=== PATIENT | male | born 1980 | race Caucasian/White ===

== ENCOUNTER 2018-12-13 22:33 | Emergency (ER) | payer OTHER ==
[2018-12-13 22:43] VITALS: TEMP 98.5
[2018-12-13] MEDS ORDERED: SODIUM CHLORIDE 0.9% 1,000 ML IV STA (23:13)
--- NOTE | 2018-12-13 23:20 | ED ---
General Adult HPI - General Chief complaint: Syncope Stated complaint: SYNCOPE Time Seen by Provider: 12/13/18 22:44 Source: patient, family, EMS, RN notes reviewed Mode of arrival: EMS Limitations: no limitations - History of Present Illness Initial comments: Chief complaint and history of present illness this is a 38-year-old male who was at a bowling alley and had 2 or 3 beers. He was talking to someone who is describing a surgical procedure. The witnesses said he stiffened up and fell forward someone helped break his fall he did cut his lower lip. There is no seizure activity afterwards he wakened soon thereafter was confused. reports he looked somewhat pale. He is answering questions at this time. - Related Data Home Medications Medication Instructions Recorded Confirmed Acetaminophen Tab [Tylenol Tab] 650 mg PO Q6H PRN 12/13/18 12/13/18 Calcium Carbonate [Tums] 500 mg PO BID PRN 12/13/18 12/13/18 Allergies Allergy/AdvReac Type Severity Reaction Status Date / Time No Known Allergies Allergy Verified 12/13/18 23:01 Review of Systems ROS Statement: Those systems with pertinent positive or pertinent negative responses have been documented in the HPI. Review of systems. Patient denies any headache or visual acuity changes right now denies any pain or chipped teeth. He does have a small laceration to the middle of his lower lip. Denies headache or neck pain. No chest pain shortness breath GI or problems. All systems were reviewed. The patient denies any significant past medical problems his pointed out that he had one syncopal episode after eating too much sugar 10 years ago. The patient denies taking any current medications. He does state that he had 2 maybe 3 beers. He does smoke a little marijuana. Family history noncontributory. ROS Other: All systems not noted in ROS Statement are negative. Past Medical History Past Medical History: No Reported History History of Any Multi-Drug Resistant Organisms: None Reported Past Surgical History: Hernia Repair Past Psychological History: No Psychological Hx Reported Smoking Status: Current every day smoker Past Alcohol Use History: Occasional Past Drug Use History: Marijuana General Exam - General Exam Comments Initial Comments: General: The patient is awake and alert,patient just recently had a syncopal episode [place] [facility] [place]. Presents with a laceration to his lower lip.vital signs show temperature 98.0 pulse 116 respiratory rate 16 blood pressure 121/80 and pulse ox on percent room air. Eye: Pupils are equal, round and reactive to light, extra-ocular movements are intact ; there is normal conjunctiva bilaterally. No signs of icterus. Ears, nose, mouth and throat: There are moist mucous membranes and no oral lesions.small V-shaped laceration middle of lower lip. Teeth intact. Patient denies any chipped teeth. Neck: The neck is supple, there is no tenderness . Cardiovascular: There is a regular rate and rhythm. No murmur, rub or gallop is appreciated. Respiratory: Lungs are clear to auscultation, respirations are non-labored, breath sounds are equal. No wheezes, stridor, rales, or rhonchi. Gastrointestinal: Soft, non-distended, non-tender abdomen without masses or organomegaly noted. There is no rebound or guarding present. No CVA tenderness. Bowel sounds are unremarkable. Back: There is no tenderness to palpation in the midline. There is no obvious deformity. No rashes noted. Musculoskeletal: Normal ROM, no tenderness, There is no pedal edema. There is no calf tenderness or swelling. Sensation intact. . Neurological: CN II-XII intact, There are no obvious motor or sensory deficits. Coordination appears grossly intact. Speech is normal.no focal or lateralizing findings Skin: Skin is warm and dry and no rashes or lesions are noted. Psychiatric: Cooperative, . Limitations: no limitations Course Vital Signs 12/13/18 12/13/18 22:37 23:29 Temperature 98.5 F Pulse Rate 110 H 102 H Respiratory 16 19 Rate Blood Pressure 121/80 119/78 O2 Sat by Pulse 100 99 Oximetry EKG Findings - EKG Comments: EKG Findings:: EKG was done and reviewed at 2247 showing sinus tachycardia rate 105. Nonspecific ST-T wave changes no ectopy no ischemic changes. VA interval was 184 QRS is 90 QT is 326 QTc is 4:30. No old EKG to compare to. Dr. Kevin Medical Decision Making - Medical Decision Making Vital decision making; this is a 38-year-old male had a syncopal episode after having had several drinks and listening to a friend talk about it glory surgery. The patient thinks he may have had a syncopal episode secondary to that. He does have a laceration to his lip. This repaired by the physician's assistant director of residence life. The patient's white count is 12.8 hemoglobin 15 hematocrit 45. Potassium 4.1 with a BUN 20 creatinine 0.9 and GFR greater than 90. Glucose 142.Troponin less than 0.012. CT of the brain and cervical spine were done and reported to be negative for CT of his brain and spine per Dr. Dexter. The patient resting comfortably. He is rehydrated. With be sent home with his . He'll be advised to follow-up with his family physician. The patient was told that he should not or cannot drive until his family physician clears him for having had a syncopal episode. As another episode while driving will be dangerous to him in the public a large. - Lab Data Result diagrams: 12/13/18 22:45 12/13/18 22:45 Lab Results 12/13/18 12/13/18 12/13/18 Range/Units 22:45 22:45 22:45 WBC 12.8 H (3.8-10.6) k/uL RBC 5.15 (4.30-5.90) m/uL Hgb 15.5 (13.0-17.5) gm/dL Hct 45.3 (39.0-53.0) % MCV 87.9 (80.0-100.0) fL MCH 30.1 (25.0-35.0) pg MCHC 34.3 (31.0-37.0) g/dL RDW 12.2 (11.5-15.5) % Plt Count 340 (150-450) k/uL Neutrophils % 67 % Lymphocytes % 24 % Monocytes % 4 % Eosinophils % 3 % Basophils % 1 % Neutrophils # 8.6 H (1.3-7.7) k/uL Lymphocytes # 3.1 (1.0-4.8) k/uL Monocytes # 0.5 (0-1.0) k/uL Eosinophils # 0.3 (0-0.7) k/uL Basophils # 0.1 (0-0.2) k/uL Sodium 136 L (137-145) mmol/L Potassium 4.1 (3.5-5.1) mmol/L Chloride 103 (98-107) mmol/L Carbon Dioxide 25 (22-30) mmol/L Anion Gap 8 mmol/L BUN 20 (9-20) mg/dL Creatinine 0.99 (0.66-1.25) mg/dL Est GFR (CKD-EPI)AfAm >90 (>60 ml/min/1.73 sqM) Est GFR (CKD-EPI)NonAf >90 (>60 ml/min/1.73 sqM) Glucose 142 H (74-99) mg/dL Calcium 9.5 (8.4-10.2) mg/dL Total Bilirubin 0.4 (0.2-1.3) mg/dL AST 21 (17-59) U/L ALT 32 (21-72) U/L Alkaline Phosphatase 49 (38-126) U/L Total Creatine Kinase 95 (55-170) U/L CK-MB (CK-2) 0.8 (0.0-2.4) ng/mL CK-MB (CK-2) Rel Index 0.8 Troponin I <0.012 (0.000-0.034) ng/mL Total Protein 6.9 (6.3-8.2) g/dL Albumin 4.2 (3.5-5.0) g/dL Disposition Clinical Impression: Vasovagal syncope, Laceration of lip Disposition: HOME SELF-CARE Condition: Fair Instructions: Syncope (ED) Additional Instructions: Apply ice to lip. Reports signs of infection her family doctor. No driving a car or operating heavy machinery until cleared by her family doctor. Is patient prescribed a controlled substance at d/c from ED?: No Referrals: None,Stated [Primary Care Provider] - 1-2 days Time of Disposition: 00:31
[2018-12-13 23:28] LABS: Basophils # (A) 0.1 k/uL (0-0.2); Basophils % (A) 1 %; Eosinophils # (A) 0.3 k/uL (0-0.7); Eosinophils % (A) 3 %; HCT 45.3 % (39.0-53.0); HGB 15.5 gm/dL (13.0-17.5); Lymphocytes # (A) 3.1 k/uL (1.0-4.8); Lymphocytes % (A) 24 %; MCH 30.1 pg (25.0-35.0); MCHC 34.3 g/dL (31.0-37.0); MCV 87.9 fL (80.0-100.0); Mean Platelet Volume 6.7; Monocytes # (A) 0.5 k/uL (0-1.0); Monocytes % (A) 4 %; Neutrophils # (A) 8.6 k/uL (1.3-7.7); Neutrophils % (A) 67 %; Platelet Count 340 k/uL (150-450); RBC 5.15 m/uL (4.30-5.90); RDW 12.2 % (11.5-15.5); WBC 12.8 k/uL (3.8-10.6)
[2018-12-13 23:30] VITALS: RESP 19
[2018-12-13 23:38] LABS: ALT 32 U/L (21-72); AST 21 U/L (17-59); Albumin 4.2 g/dL (3.5-5.0); Alkaline Phosphatase 49 U/L (38-126); Anion Gap 8 mmol/L; Blood Urea Nitrogen 20 mg/dL (9-20); Calcium 9.5 mg/dL (8.4-10.2); Carbon Dioxide 25 mmol/L (22-30); Chloride 103 mmol/L (98-107); Glucose 142 mg/dL (74-99); Potassium 4.1 mmol/L (3.5-5.1); Sodium 136 mmol/L (137-145); Total Bilirubin 0.4 mg/dL (0.2-1.3); Total Protein 6.9 g/dL (6.3-8.2)
[2018-12-13 23:57] LABS: Creatine Kinase 95 U/L (55-170)
[2018-12-13] MEDS ORDERED: LIDOCAINE/EPINEPHR/TETRACAINE 5 ML BOTTLE TOPICAL ONE (23:57)
[2018-12-14 00:09] LABS: Troponin I <0.012 ng/mL (0.000-0.034)
[2018-12-14 00:21] LABS: Creatine Kinase MB 0.8 ng/mL (0.0-2.4)
--- NOTE | 2018-12-14 00:25 | CT ---
EXAMINATION TYPE: CT brain belle crane con DATE OF EXAM: 12/13/2018 COMPARISON: None HISTORY: syncope neck pain. Headache. CT DLP: 1382.7 mGycm Automated exposure control for dose reduction was used. TECHNIQUE: CT scan of the head and cervical spine are performed without contrast. FINDINGS: Ventricles of normal size. There is no mass effect nor midline shift. There is no sign of intracranial hemorrhage. The calvarium is intact. The cervical vertebra have normal spacing and alignment. Posterior elements are intact. Skull base ap pears intact. There is no evidence of a fracture. Facet joints appear intact. IMPRESSION: Negative CT scan of the brain. Negative CT scan of the cervical spine.
[2018-12-14 00:46] VITALS: BP 120/78; PULSE 101
== END 2018-12-14 00:47 | disposition home or self-care (01) ==
LOC: EC 22:33
DX: R55 Syncope and collapse (principal); S01.511A Laceration without foreign body of lip, initial encounter; F17.200 Nicotine dependence, unspecified, uncomplicated; W19.XXXA Unspecified fall, initial encounter; Y93.54 Activity, bowling; Y92.39 Other specified sports and athletic area as the place of occurrence of the external cause
CPT/HCPCS: 36415; 70450; 72125; 80053; 82550; 82553; 84484; 85025; 93005; 96360; 99285